=== PATIENT | female | born 1960 | race Two or more races ===

== ENCOUNTER 2024-07-05 11:19 | Outpatient (CLI) | payer OTHER | END 2024-07-05 11:37 | disposition home or self-care (01) | LOC: TOM 11:19 | PROVIDERS: ATTEND Urology | DX: R31.0 Gross hematuria (principal); N20.0 Calculus of kidney ==

== ENCOUNTER 2024-07-05 11:49 | Outpatient (CLI) | payer OTHER ==
[2024-07-05 12:33] LABS: CREATININE SERUM 0.65 mg/dL (0.55-1.02)
== END 2024-07-05 11:50 | disposition home or self-care (01) ==
LOC: LAB 11:49
PROVIDERS: ATTEND Urology
DX: R31.0 Gross hematuria (principal)